=== PATIENT | male | born 1995 | race Hispanic/Latino ===

== ENCOUNTER 2020-10-14 15:04 | Emergency (ER) | payer BC, SELFPAY ==
[2020-10-14] MEDS ORDERED: Boostrix 0.5 ML (Tdap) VIAL ONE (15:34)
[2020-10-14] MEDS ORDERED: HYDROcodone/Acetaminophen 5/325 mg Tablet ONE (15:34)
--- NOTE | 2020-10-14 15:44 | RAD ---
Radiograph right foot 3 views: 10/14/2020 HISTORY: 25-year-old male status post acute traumatic injury to right foot COMPARISON: None FINDINGS: There are numerous punctate tiny calcific density debris on the skin surface adjacent to the fifth MT P. The fifth DIP joint articular surfaces are irregular, with joint space narrowing, and fragmentation o f bone at the lateral edge, with lateral displacement of a 4 mm faint calcific density which is presumably a fracture fragment. There is overlying soft tissue irregularity. No dislocation. Mild calcific density at the medial aspect of the fourth DIP joint space. The rest of the bones are normal IMPRESSION: Abnormal appearance at the fifth distal interphalangeal joint of the right pinky toe, presumably repr esenting acute, traumatic intra-articular displaced fracture, although the appearance is unusual
[2020-10-14] MEDS ORDERED: Bacitracin 1 PK ONE (17:15)
== END 2020-10-14 17:45 | disposition home or self-care (01) ==
LOC: NAV ERS 15:04
DX: S97.81XA Crushing injury of right foot, initial encounter (principal); S92.531B Displaced fracture of distal phalanx of right lesser toe(s), initial encounter for open fracture; W20.8XXA Other cause of strike by thrown, projected or falling object, initial encounter
CPT/HCPCS: 90715

== ENCOUNTER 2022-11-14 10:06 | Outpatient (CLI) | payer BC | END 2022-11-14 10:07 | disposition home or self-care (01) | LOC: NAV RAD 10:06 | PROVIDERS: ATTEND Family Medicine | DX: S39.012A Strain of muscle, fascia and tendon of lower back, initial encounter (principal) | CPT/HCPCS: 72072; 72100 ==